=== PATIENT | female | born 2000 | race American Indian/Alaskan Native ===

== ENCOUNTER 2022-02-05 04:50 | Emergency (ER) | payer SELFPAY ==
[2022-02-05 05:25] LABS: Basophils % (Auto) 0.4 % (0.0-1.8); Eosinophils # (Auto) 0.1 K/mm3 (0.0-0.4); Eosinophils % (Auto) 1.4 % (0.0-4.3); Hematocrit 37.4 % (30.3-42.9); Hemoglobin 11.7 gm/dl (10.1-14.3); Lymphocytes # (Auto) 2.4 K/mm3 (1.2-5.4); Lymphocytes % (Auto) 29.5 % (13.4-35.0); Mean Corpuscular HGB Conc 31 % (30-34); Mean Corpuscular Volume 82 fl (79-97); Monocytes # (Auto) 0.7 K/mm3 (0.0-0.8); Platelet Count 327 K/mm3 (140-440); Red Blood Count 4.53 M/mm3 (3.65-5.03); Red Cell Distribution Width 17.1 % (13.2-15.2)
--- NOTE | 2022-02-05 06:45 | Emergency Department Report ---
ED Female HPI - General Chief complaint: Vaginal Bleeding Stated complaint: VAGINAL BLEEDING (6 WKS ) Time Seen by Provider: 02/05/22 06:37 Source: patient Mode of arrival: Ambulatory Limitations: No Limitations - History of Present Illness Initial comments: Patient is a 21-year-old female that comes to the emergency room 6 weeks with vaginal bleeding and abdominal cramping. Last menstrual was 2- 9. This is her first . Denies vaginal discharge, dysuria or fevers. Patient has not yet seen [facility]. MD Complaint: vaginal bleeding -: Gradual, days(s) Severity scale (0 -10): 10 Improves with: none Worsens with: none Are you Now?: Yes Last Menstrual Period: 12/23/21 EDC: 09/29/22 Associated Symptoms: vaginal bleeding, abdominal pain. denies: vaginal discharge, nausea/vomiting, fever/chills, headaches, loss of appetite, dysuria, hematuria, rash, seizure, shortness of breath, syncope, weakness - Related Data Sexually active: Yes : 1 Para: 0 A: 0 Previous Rx's Medication Instructions Recorded Last Taken Type HYDROcodone/APAP 5-325 [[place] 1 each PO Q6HR PRN #10 tablet 02/05/22 Unknown Rx 5/325] Ondansetron [Zofran Odt] 4 mg PO Q8HR PRN #10 tab.rapdis 02/05/22 Unknown Rx Allergies Allergy/AdvReac Type Severity Reaction Status Date / Time No Known Allergies Allergy Verified 02/05/22 05:03 ED Review of Systems ROS: Stated complaint: VAGINAL BLEEDING (6 WKS ) Other details as noted in HPI Comment: All other systems reviewed and negative ED Past Medical Hx - Past Medical History Previous Medical History?: No - Surgical History Past Surgical History?: No - Family History Family history: no significant - Social History Smoking Status: Never Smoker Substance Use Type: None - Medications Home Medications: Home Medications Medication Instructions Recorded Confirmed Last Taken Type HYDROcodone/APAP 5-325 [[place] 1 each PO Q6HR PRN #10 tablet 02/05/22 Unknown Rx 5/325] Ondansetron [Zofran Odt] 4 mg PO Q8HR PRN #10 tab.rapdis 02/05/22 Unknown Rx ED Physical Exam - General Limitations: No Limitations General appearance: alert, in no apparent distress - Head Head exam: Present: atraumatic, normocephalic - Eye Eye exam: Present: normal appearance - ENT ENT exam: Present: mucous membranes moist - Neck Neck exam: Present: normal inspection - Respiratory Respiratory exam: Present: normal lung sounds bilaterally. Absent: respiratory distress - Cardiovascular Cardiovascular Exam: Present: regular rate, normal rhythm. Absent: systolic murmur, diastolic murmur, rubs, gallop - GI/Abdominal GI/Abdominal exam: Present: soft, normal bowel sounds - Extremities Exam Extremities exam: Present: normal inspection - Back Exam Back exam: Present: normal inspection - Neurological Exam Neurological exam: Present: alert, oriented X3 - Psychiatric Psychiatric exam: Present: normal affect, normal mood - Skin Skin exam: Present: warm, dry, intact, normal color. Absent: rash ED Course Vital Signs 02/05/22 04:54 Temperature 97.9 F Pulse Rate 82 Respiratory 18 Rate Blood Pressure 133/79 O2 Sat by Pulse 100 Oximetry ED Medical Decision Making - Lab Data Result diagrams: 02/05/22 05:14 02/05/22 05:14 - Radiology Data Radiology results: report reviewed, image reviewed SEE REPORT - Medical Decision Making Labs 02/05/22 02/05/22 02/05/22 05:14 05:14 05:14 WBC 8.3 RBC 4.53 Hgb 11.7 Hct 37.4 MCV 82 MCH 26 L MCHC 31 RDW 17.1 H Plt Count 327 Lymph % (Auto) 29.5 [place] % (Auto) 8.0 H Eos % (Auto) 1.4 Baso % (Auto) 0.4 Lymph # (Auto) 2.4 [place] # (Auto) 0.7 Eos # (Auto) 0.1 Baso # (Auto) 0.0 Seg Neutrophils % 60.7 Seg Neutrophils # 5.0 Sodium Potassium Chloride Carbon Dioxide Anion Gap BUN Creatinine Estimated GFR BUN/Creatinine Ratio Glucose Calcium HCG, Qual Positive HCG, Quant 385.7 H Blood Type 02/05/22 02/05/22 05:14 05:14 WBC RBC Hgb Hct MCV MCH MCHC RDW Plt Count Lymph % (Auto) [place] % (Auto) Eos % (Auto) Baso % (Auto) Lymph # (Auto) [place] # (Auto) Eos # (Auto) Baso # (Auto) Seg Neutrophils % Seg Neutrophils # Sodium 139 Potassium 3.9 Chloride 106.0 Carbon Dioxide 20 L Anion Gap 17 BUN 10 Creatinine 0.5 L Estimated GFR > 60 BUN/Creatinine Ratio 20 Glucose 96 Calcium 9.5 HCG, Qual HCG, Quant Blood Type O POSITIVE Vital Signs 02/05/22 04:54 Temperature 97.9 F Pulse Rate 82 Respiratory 18 Rate Blood Pressure 133/79 O2 Sat by Pulse 100 Oximetry Labs noted. O+. Ultrasound noted. hCG noted. Patient is having vaginal bleeding and cramping suggestive of miscarriage. There is no evidence of ectopic on current ultrasound. Patient was medicated with normal saline, morphine and Zofran. This greatly improved her pain and emotional distress. Prior to discharge patient was medicated with p.o. pain medications. Patient and significant other educated on what to expect in the days to come. They have also been educated on follow-up with [facility] in 48 hours for serial hCG and ultrasound. Significant other's aunt was updated on plan of care. On discharge patient ambulatory, taking p.o. and in no acute distress. Discharge home with discharge plan of care including follow-up, diet, activity, pelvic rest, and medications. Patient verbalizes understanding. - Differential Diagnosis RO AB Critical care attestation.: If time is entered above; I have spent that time in minutes in the direct care of this critically ill patient, excluding procedure time. ED Disposition Clinical Impression: Vaginal bleeding during Disposition: HOME / SELF CARE / HOMELESS Is pt being admited?: No Does the pt Need Aspirin: No Condition: Stable Instructions: Miscarriage Additional Instructions: PELVIC REST- NO SEX/ NO TAMPONS MOTRIN AND TYLENOL OVER THE COUNTER FOR MILD PAIN EXPECT HEAVY PERIOD AND CRAMPING YOU NEED TO SEE OBGYN ON TUESDAY FOR FOLLOW UP EVALUATION TELL THEM YOU WERE HERE AND WE DID LABS AND ULTRASOUND- THEY CAN ACCESS THE IMAGES YOUR BLOOD TYPE IS RH POS DIET TOLERATED ACTIVITY TOLERATED Prescriptions: HYDROcodone/APAP 5-325 [[place] 5/325] 1 each PO Q6HR PRN #10 tablet PRN Reason: Pain Ondansetron [Zofran Odt] 4 mg PO Q8HR PRN #10 tab.rapdis PRN Reason: Vomiting Referrals: GERRY CALLES MD [Staff Physician] - 3-5 Days Forms: Work/School Release Form(ED) Time of Disposition: 08:38
[2022-02-05] MEDS ORDERED: SODIUM CHLORIDE 0.9% 1000 ML 1,000 ML IV ONE (07:01)
[2022-02-05] MEDS ORDERED: ONDANSETRON 4 MG/2 ML INJ IV ONE (07:01)
--- NOTE | 2022-02-05 07:07 | Ultrasound Report ---
TRANSABDOMINAL AND TRANSVAGINAL OB PELVIC ULTRASOUND INDICATION / CLINICAL INFORMATION: Vaginal bleeding and pelvic cramping. COMPARISON: None available. FINDINGS: Transabdominal: The uterus measures 8.7 x 4.6 x 4.6 cm. The endometrial stripe measures 7.7 mm AP. Th e endometrial is empty. Neither ovary is seen. There is no evidence of adnexal mass or free fluid. Im ages of the urinary bladder are normal. Transvaginal: The uterus measures 9.0 x 4.5 x 5.0 cm. The endometrial stripe measures 6.1 mm AP in th e uterine body and 1.1 cm in the endocervical canal. The endometrial cavity is empty. The right ovary measures 2.7 x 1.4 x 2.0 cm and the left ovary 2.8 x 1.7 x 1.8 cm. There is normal bl ood flow to both ovaries on Doppler exam. I see no evidence of adnexal mass or free fluid. IMPRESSION: No evidence of intrauterine or extrauterine . Signer Name: Leon West MD Signed: 02/05/2022 7:02 AM Workstation Name: [id number]
[2022-02-05] MEDS ORDERED: MORPHINE 2 MG/1 ML INJ IV ONE (07:14)
[2022-02-05] MEDS ORDERED: KETOROLAC 30 MG/1 ML INJ IV ONE (07:14)
[2022-02-05] MEDS ORDERED: cefTRIAXone/NS 1 GM/50 ML 1 GM/50 ML BAG IV ONE (07:14)
[2022-02-05 07:44] LABS: Blood Urea Nitrogen 10 mg/dL (7-17); Calcium 9.5 mg/dL (8.4-10.2); Hemolysis Index 16
[2022-02-05 07:53] LABS: BUN/Creatinine Ratio 20
[2022-02-05] MEDS ORDERED: HYDROcodone/ACETAMINOPHEN 5-325 MG TAB PO ONE (08:37)
[2022-02-05 09:43] VITALS: BP 106/76
== END 2022-02-05 09:41 | disposition home or self-care (01) ==
LOC: ED 04:50
DX: O20.9 Hemorrhage in early pregnancy, unspecified (principal); Z3A.01 Less than 8 weeks gestation of pregnancy; Z79.899 Other long term (current) drug therapy
CPT/HCPCS: 36415; 76801; 76817; 80048; 84702; 84703; 85025; 86900; 86901; 96365; 96375; 99284; J0696; J1885; J2270; J2405; J7030; Q0162